=== PATIENT | male | born 1955 | race Caucasian/White ===

== ENCOUNTER 2019-02-08 02:34 | Emergency (ER) | payer OTHER ==
[~2019-02-08] VITALS: Ht 175.3 cm; Wt 72.6 kg
[2019-02-08] MEDS ORDERED: NOHOMEMEDICATIONS (02:40)
[2019-02-08] MEDS ORDERED: PREDNISONE 20 M20 MG PO (05:26)
[2019-02-08] MEDS ORDERED: ALBUTEROL2.5 MG/31 INH (05:26)
[2019-02-08 05:32] VITALS: BP 114/63
== END 2019-02-08 05:36 | disposition home or self-care (01) ==
LOC: ER 02:34
DX: J44.1 Chronic obstructive pulmonary disease with (acute) exacerbation (principal); F17.210 Nicotine dependence, cigarettes, uncomplicated